=== PATIENT | male | born 1985 | race African-American/Black ===

== ENCOUNTER 2017-10-11 19:18 | Emergency (ER) | payer SELFPAY ==
[~2017-10-11] VITALS: Ht 182.9 cm; Wt 81.6 kg
[2017-10-11 19:21] VITALS: BP 105/67
[2017-10-11] MEDS ORDERED: MORPHINE SULFATE INJ 2 MG/ML DISP.SYRIN IM ONE (20:00)
[2017-10-11] MEDS ORDERED: CEPHALEXIN MONOHYDRATE 500 MG CAPSULE PO ONE ×2 (20:00→20:08)
[2017-10-11] MEDS ORDERED: ONDANSETRON 4 MG TAB.RAPDIS SL ONE (20:00)
[2017-10-11] MEDS ORDERED: MORPHINE SULFATE INJ 4 MG/ML DISP.SYRIN ONE (20:08)
[2017-10-11] MEDS ORDERED: ONDANSETRON 4 MG TAB.RAPDIS ONE (20:08)
[2017-10-11] MEDS ORDERED: TDAP [DIPH/PERTUSSIS/TET] 0.5 ML VIAL IM ONE ×2 (21:00→21:04)
== END 2017-10-11 21:39 | disposition home or self-care (01) ==
LOC: ER 19:19
DX: S92.421B Displaced fracture of distal phalanx of right great toe, initial encounter for open fracture (principal); S92.521B Displaced fracture of middle phalanx of right lesser toe(s), initial encounter for open fracture; W34.09XA Accidental discharge from other specified firearms, initial encounter; Y93.89 Activity, other specified; Y92.89 Other specified places as the place of occurrence of the external cause; Y99.8 Other external cause status
CPT/HCPCS: 73630; 90471; 90715; 96372; 99284; A4606; A6402; J2270; Q0162; Z7610